=== PATIENT | male | born 1995 | race African-American/Black ===

== ENCOUNTER 2020-08-26 16:09 | Emergency (ER) | payer OTHER, SELFPAY ==
[2020-08-26 16:20] VITALS: BP 126/71; PULSE 70; RESP 16; TEMP 37.2; O2SAT 100
--- NOTE | 2020-08-26 16:21 | ED.BACK ---
HPI - Back Pain/Injury General Chief Complaint: Back Pain/Injury Stated Complaint: lower back pain/right shoulder pain Time Seen by Provider: 08/26/20 16:21 Source: patient and RN notes reviewed History of Present Illness HPI Narrative: Patient is a 25-year-old male who presents the urgent care with complaints of low back and right shoulder pain. Patient denies of any known injury, fall or blunt force trauma. States that his back is been hurting for approximately 10 days and is sharp at times. States that the right shoulder pain has been present for approximately 1 week. Patient states he has been taking ibuprofen whenever it hurts . 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 Denies of any other symptoms. Denies of any urinary symptoms. No other acute complaints. No acute distress noted. Patient aware of the plan of care. Some parts of this dictation were generated by voice recognition software and may contain typographical and/or grammatical inaccuracies. Related Data Allergies Allergy/AdvReac Type Severity Reaction Status Date / Time No Known Allergies Allergy Verified 08/26/20 16:27 Review of Systems Review of Systems: Narrative: CONSTITUTIONAL: Denies fever, chills, or sweats. EYES: Denies visual changes, redness, or discharge. ENT: Denies rhinorrhea, congestion, sore throat, or otalgia. CARDIOVASCULAR: Denies chest pain, palpitations, or edema. RESPIRATORY: Denies cough or dyspnea. GASTROINTESTINAL: Denies abdominal pain, nausea, vomiting, or diarrhea. GENITOURINARY: Denies dysuria or hematuria. SKIN: Denies rash or itching. MUSCULOSKELETAL: Reports of low back pain and right shoulder pain NEUROLOGIC: Denies headache, numbness, or weakness. All other systems reviewed are negative, except as documented in HPI. PMFSH Social History Social History Gender identity (if verbalized by the patient): Male Comments At the time of my signature, I reviewed and agree with the nursing past medical, surgical, social, and family history. There is no relevant family history pertinent to the patient complaint. Exam Narrative: Exam Narrative: GENERAL: This is a well-nourished, well-developed patient, in no apparent distress. HEAD: normocephalic, atraumatic. EYES: PERRL. Sclera clear/white. Vision is grossly intact. EARS: External ears normal NOSE: External nose normal with no obvious nasal discharge, nares without redness, no rhinorrhea. THROAT: Mucous membranes moist NECK: Neck supple SKIN: warm, intact with no suspicious lesions or rash, good texture and turgor. NEURO: awake, alert, and oriented to person, place and time. There were no obvious focal neurologic abnormalities. EXTREMITIES: No clubbing, cyanosis, or edema. No obvious deformity or dislocation to right upper extremity/shoulder. Mild to moderate tenderness with palpation to posterior right shoulder blade. No tenderness to anterior joint space to the right shoulder. Positive strong right radial pulse with capillary refill less than 2 seconds. Range of motion to right upper extremity within normal limits. BACK: Mild diffuse lumbar tenderness with negative bilateral SLE, no crepitus Course Vital Signs Vital signs: Vital Signs Temperature 98.9 F 08/26/20 16:20 Pulse Rate 70 08/26/20 16:20 Respiratory Rate 16 08/26/20 16:20 Blood Pressure 126/71 08/26/20 16:20 Pulse Oximetry 100 08/26/20 16:20 Temperature 98.9 F 08/26/20 16:20 Pulse Rate 70 08/26/20 16:20 Respiratory Rate 16 08/26/20 16:20 Blood Pressure 126/71 08/26/20 16:20 Pulse Oximetry 100 08/26/20 16:20 Reviewed MDM - Back Pain/Injury MDM Narrative Medical decision making narrative: Advised the patient to complete steroid regimen as prescribed. Use Flexeril at bedtime, as needed. Do not drive or operate heavy machinery while taking the Flex
== END 2020-08-26 16:52 | disposition home or self-care (01) ==
PROVIDERS: Emergency Provider Nurse Practitioner Family
DX: M54.5 Low back pain (principal); S46.911A Strain of unspecified muscle, fascia and tendon at shoulder and upper arm level, right arm, initial encounter; X58.XXXA Exposure to other specified factors, initial encounter
CPT/HCPCS: 99213; G0463

== ENCOUNTER 2024-10-01 12:45 | Emergency (ER) | payer OTHER, SELFPAY ==
--- NOTE | ~2024-10-01 | XR_ITS ---
Left Knee Technique: AP, lateral, oblique, and sunrise views were obtained. Clinical History: Pain Findings: No fracture or dislocation is seen. Osseous alignment is anatomic. Joint spaces are preserv ed without degenerative or erosive change. Soft tissues are unremarkable. No joint effusion is seen. Impression: Unremarkable left knee radiographs. Reviewed, dictated and finalized at location . TECH Impression: Unremarkable left knee radiographs.
[2024-10-01 12:49] VITALS: BP 134/81; PULSE 50; RESP 17; TEMP 36.7; O2SAT 100
--- NOTE | 2024-10-01 13:07 | ED_ITS ---
HPI - Extremity Injury (Lower) General Chief Complaint: Extremity Injury, Lower Stated Complaint: left leg injury History of Present Illness HPI Narrative: Patient presents with pain in the lateral size of left knee for the past 2 days. Patient states he accidentally shut it in a van door at work 2 days ago. No bruising no swelling no deformity noted. Related Data Home Medications ?Medication ?Instructions ?Recorded ?Confirmed ?Last Taken ?Type No Home Medications 10/01/24 10/01/24 Unknown History Allergies Allergy/AdvReac Type Severity Reaction Status Date / Time Bleach (Sodium Hypochlorite) Allergy Unknown Unknown Verified 10/01/24 13:12 Review of Systems Review of Systems: CONSTITUTIONAL: Denies fever, chills, or sweats. EYES: Denies visual changes, redness, or discharge. ENT: Denies rhinorrhea, congestion, sore throat, or otalgia. CARDIOVASCULAR: Denies chest pain, palpitations, or edema. RESPIRATORY: Denies cough or dyspnea. GASTROINTESTINAL: Denies abdominal pain, nausea, vomiting, or diarrhea. GENITOURINARY: Denies dysuria or hematuria. SKIN: Denies rash or itching. MUSCULOSKELETAL: Denies back pain, joint pain, or myalgia. NEUROLOGIC: Denies headache, numbness, or weakness. PSYCHIATRIC: Denies anxiety or depression. PMFSH Social History Social History Gender identity (if verbalized by the patient): Male Comments At time of signature, agree with nursing past medical, surgical, social and family history. There is no relevant family history pertinent to the presenting complaint Exam Narrative: GENERAL: Well-appearing, well-nourished, and in no acute distress. HEAD: Normocephalic, atraumatic. EYES: PERRLA and EOMI. ENT: Nares clear, no rhinorrhea or epistaxis. Mucous membranes moist. NECK: Supple. CHEST: Clear to auscultation. No respiratory distress. HEART: Regular rate and rhythm. No murmur heard. Normal peripheral pulses. ABDOMEN: Soft, nontender, nondistended, normal active bowel sounds. EXTREMITIES: Normal range of motion. No edema. SKIN INTACT. NO DEFORMITY. NORMAL ROM, HAS FULL EXTENSION AND FLEXION. COMPARTMENTS SOFT. NEGATIVE ANTERIOR, POSTERIOR DRAWER SIGNS ON TEST. NO CREPITUS. DP PULSE, NORMAL CAPILLARY REFILL MCMURRAYS, PAIN TO RIGHT MEDIAL AND DISTAL KNEE WITH KNEE FLEXION, INTERNAL AND EXTERNAL FOOT ROTATION.NO ERYTHEMA OR INCREASED WARMTH TO CALF. . SKIN: Warm, dry, no rash. NEURO: No focal deficits. Alert and oriented x3. Eris Coma Scale Eye Opening: Spontaneous 4 Eris Coma Scale Motor: Obeys Commands 6 [place] Coma Scale Verbal: Oriented 5 Eris Coma Scale Total 15 Course Course Level of Care: Express Care Visit Vital Signs Vital signs: Vital Signs Temperature 36.7 C 10/01/24 12:49 Pulse Rate 50 L 10/01/24 12:49 Respiratory Rate 17 10/01/24 12:49 Blood Pressure 134/81 10/01/24 12:49 Pulse Oximetry 100 10/01/24 12:49 Oxygen Delivery Room Air 10/01/24 12:49 Temperature 36.7 C 10/01/24 12:49 Pulse Rate 50 L 10/01/24 12:49 Respiratory Rate 17 10/01/24 12:49 Blood Pressure 134/81 10/01/24 12:49 Pulse Oximetry 100 10/01/24 12:49 Oxygen Delivery Room Air 10/01/24 12:49 Please JOSÉ MIGUEL schedule a followup visit with your personal physician for further evaluation and treatment. Including recheck and discussion of your blood pressure. If your symptoms persist, change or worsen significantly before you can contact your personal physician then please, without delay, go to the emergency department for further evaluation MDM - Extremity Injury (Lower) Imaging Data Radiologist's impression: Patient: Marc Chaney : 1995 MR#: [id number] Age: 29 Acct:[id number] Loc: [facility] ADM Date: 10/01/24Attending Dr: Ordering Physician: Antonietta Yoon APRN Date of Service: 10/01/24 Procedure(s): XR knee LT min 4V Accession Number(s): [id number] cc: Antonietta Yoon APRN; PROTOTYPE MACHINIST PHYSICIAN~ Left Knee Technique: AP, lateral, oblique, and sunrise views were obtained. Clinical History: Pain Findings: No fracture or dislocation is seen. Osseous alignment is anatomic. Joint spaces are preserved without degenerative or erosive change. Soft tissues are unremarkable. No joint effusion is seen. Impression: Unremarkable left knee radiographs. Reviewed, dictated and finalized at location . AND DETONATOR Discharge Plan Discharge Clinical Impression: Knee contusion Patient Disposition: Home, Self-Care Condition: Stable Instructions: Knee Sprain (DC) Additional Instructions: Ice to the area 20-30 minutes 4-6 times a day Elevate above heart Elastic wrap or orthopedic splint as directed for comfort for the next 5-7 days Tylenol for lesser pain Ibuprofen regularly for the next 2-3 days for the inflammation Follow-up with PCP if further problems or concerns follow up with orthopedic provider for further evaluation and treatment -If you have any worsening of symptoms or any other concerns please go to the ED immediately. Patient Language: Brazilian Prescriptions: No Action No Home Medications Follow-up/Referrals: Hal Wolff MD [Physician] - PHYSICIAN,PROTOTYPE MACHINIST [Primary Care Provider] - Stand Alone Forms: Work/School Release IP
--- OUTSIDE RECORDS SUMMARY | 2024-10-06 05:49 | XMS_ITS | Referral Summary ---
Author Organization [facility] Address [address] [place] [address] Care Team Providers Care Ticket Speculator Name Role Phone No, Physician Primary Care Provider [phone] Allergies Active Allergy Reactions Criticality Noted Date Comments Bleach (Sodium Hypochlorite) Rash Medium 018 Medications acetaminophen-co deine (TYLENOL with CODEINE #3) 300-30 mg per tablet Take 1 tablet by mouth every 6 (six) hours as needed for pain 8 tablet 04/05/2019 Active neomycin-polymyx in B-dexameth (POLYDEX) 3.5 mg/g-10,000 unit/g-0.1 % ointment Apply to right eye every 4 (four) hours 3.5 g 1 04/05/2019 Active ibuprofen (ADVIL,MOTRIN) 600 mg tablet Take 1 tablet (600 mg total) by mouth every 6 (six) hours as needed for pain Take with food. 30 tablet 02/12/2022 Active Active Problems Problem Noted Date Diagnosed Date Blepharitis of right upper eyelid 04/05/2019 Conjunctival abrasion, right, initial encounter 04/05/2019 Social History Tobacco Use Types Packs/Day Years Used Date Smoking Tobacco: Every Day Smokeless Tobacco: Never Comments:3 cigarettes per da y Alcohol Use Standard Drinks/Week Comments No 0 (1 standard drink = 0.6 oz pur e alcohol) Personal Safety Answer Date Recorded Getting School Help Needed Not on file 01/01 Sex and Gender Information Value Date Recorded Sex Assigned at Not on file Legal Sex Male 1:52 PM CDT Gender Identity Not on file Sexual Orientation Not on file Last Filed Vital Signs Vital Sign Reading Time Taken Comments Blood Pressure 124/67 12/30/2022 8:49 PM CDT Pulse 79 12/30/2022 8:49 PM CDT Temperature 37 ??C (98.6 ??F) 12/30/2022 8:49 PM CDT Respiratory Rate 16 12/30/2022 8:49 PM CDT Oxygen Saturation 97% 12/30/2022 8:49 PM CDT Inhaled Oxygen Concentration - - Weight 56.7 kg (125 lb) 12/30/2022 5:49 PM CDT Height 162.6 cm (5' 4 ) 12/30/2022 5:49 PM CDT Body Mass Index 21.46 12/30/2022 5:49 PM CDT Plan of Treatment Not on file Insurance [facility] [employer]IC Care Teams Ticket Speculator Relationship Specialty Start Date End Date No, Physician PCP - General 07/01/18
--- OUTSIDE RECORDS SUMMARY | 2024-10-06 05:49 | XMS_ITS | Encounter Summary ---
Author Organization [facility] Address [address] [place] [id number] Care Team Providers Care Systems Tester Name Role Phone No, Physician Primary Care Provider [phone] Reason for Visit * Reason Comments Head Injury Encounter Details Date Type Department Care Team (Late st Contact Info) Description 12/30/2022 7:45 PM CDT - 12/30/2022 8:51 PM CDT Emergency [facility] Emergency Department [address] [place] [id number] Injury of head, initial encounter (Primary Dx) Discharge Disposition: Discharge to home or self care Social History Tobacco Use Types Packs/Day Years Used Date Smoking Tobacco: Every Day Smokeless Tobacco: Never Comments:3 cigarettes per da y Alcohol Use Standard Drinks/Week Comments No 0 (1 standard drink = 0.6 oz pur e alcohol) Sex and Gender Information Value Date Recorded Sex Assigned at Not on file Legal Sex Male 1:52 PM CDT Gender Identity Not on file Sexual Orientation Not on file documented as of this encounter Last Filed Vital Signs Vital Sign Reading [...] Mass Index 21.46 12/30/2022 5:49 PM CDT documented in this encounter Discharge Instructions * Discharge Instructions* Ta Gillespie NP - 12/30/2022 8:19 PM CDT Please return to the ED if you experience fever, chills, chest pain, shortness of breath, or difficulty breathing. Please return to the emergency department if you pass out, become lightheaded, dizzy, have abnormalbehavior, or began having vomiting. * Attachments The following attachments cannot be sent through Care Everywhere. * Head Injury (Adult) (German) documented in this encounter Medications at Time of Discharge acetaminophen-cod eine (TYLENOL with CODEINE #3) 300-30 mg per tablet Take 1 tablet by mouth every 6 (six) hours as needed for pain 8 tablet 04/05/2019 ibuprofen (ADVIL,MOTRIN) 600 mg tablet Take 1 tablet (600 mg total) by mouth every 6 (six) hours as needed for pain Take with food. 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 Denies being on a blood thinner, denies loss of consciousness, states he is had some intermittent feelings of a slight headache but other than that has no complaints. Patient was eating and drinking whenI entered the room to perform HPI, ROS, and physical exam and tolerated orals well. Denies additional complaints, denies chest pain, shortness of breath, difficulty breathing, fever, chills. Denies lightheadedness, dizziness, blurred vision. Patient History: Patient Active Problem List Diagnosis Date Noted Blepharitis of right upper eyelid 04/05/2019 Conjunctival abrasion, right, initial encounter 04/05/2019 History reviewed. No pertinent past medical history. History reviewed. No pertinent surgical history. History reviewed. No pertinent family history. Social History Tobacco Use Smoking status: Every Day Smokeless tobacco: Never Tobacco comments: 3 cigarettes per day Substance and Sexual Activity Alcohol use: No Drug use: No Sexual activity: Defer Social History Social History Narrative Not on file Review of Systems Review of Systems Constitutional: Negative for chills and fever. HENT: Negative for ear pain and sore throat. Eyes: Negative for pain and visual disturbance. Respiratory: Negative for cough and shortness of breath. Cardiovascular: Negative for chest pain and palpitations. Gastrointestinal: Negative for abdominal pain and vomiting. Genitourinary: Negative for dysuria and hematuria. Musculoskeletal: Negative for arthralgias and back pain. Skin: Negative for color change and rash. Neurological: Positive for headaches. Negative for seizures and syncope. + intermittent slight headache All other systems reviewed and are negative. Physical Exam ED Triage Vitals [12/30/22 1749] Temp Pulse Resp BP SpO2 37.3 ??C (99.1 ??F) 99 16 142/68 (!) 70 % Temp src Heart Rate Source Patient Position BP Location FiO2 (%) Temporal -- -- -- -- Height Height Method Weight Weight Method 1.626 m (5' 4 ) Stated 56.7 kg (125 lb) Stated Physical Exam Vitals and nursing note reviewed. Constitutional: General: He is not in acute distress. Appearance: Normal appearance. He is well-developed. He is not ill-appearing, toxic-appearing or diaphoretic. HENT: Head: Normocephalic and atraumatic. Right Ear: Tympanic membrane, ear canal and external ear normal. Left Ear: Tympanic membrane, ear canal and external ear normal. Nose: Nose normal. Mouth/Throat: Mouth: Mucous membranes are moist. Eyes: Extraocular Movements: Extraocular movements intact. Conjunctiva/sclera: Conjunctivae normal. Pupils: Pupils are equal, round, and reactive to light. Cardiovascular: Rate and Rhythm: Normal rate and regular rhythm. Pulses: Normal pulses. Heart sounds: No murmur heard. No friction rub. No gallop. Pulmonary: Effort: Pulmonary effort is normal. No respiratory distress. Breath sounds: Normal breath sounds. No stridor. No wheezing, rhonchi or rales. Chest: Chest wall: No tenderness. Abdominal: General: Abdomen is flat. There is no distension. Palpations: Abdomen is soft. There is no mass. Tenderness: There is no abdominal tenderness. There is no right CVA tenderness, left CVA tenderness, guarding or rebound. Hernia: No hernia is present. Musculoskeletal: General: No swelling, tenderness, deformity or signs of injury. Normal range of motion. Cervical back: Normal range of motion and neck supple. Right lower leg: No edema. Left lower leg: No edema. Comments: No TTP to C-spine, T-spine, L-spine. No step-off, no bony deformity. Skin: General: Skin is warm and dry. Capillary Refill: Capillary refill takes less than 2 seconds. Neurological: General: No focal deficit present. Mental Status: He is alert. Psychiatric: Mood and Affect: Mood normal. Behavior: Behavior normal. Thought Content: Thought content normal. Judgment: Judgment normal. [facility] Medical Decision Making Number and Complexity of Problems: 1-uncomplicated, low complexity Differential Diagnosis: Head injury, concussion, fall, subarachnoid hemorrhage, subdural hematoma, epidural hematoma [facility] Data: 27-year-old male patient that is struck his head on warehouse beam just prior to arrival,no loss of consciousness and not on a blood thinner External documents reviewed: None My EKG interpretation: None My CT interpretation: None My X-ray interpretation: None My Ultrasound interpretation: None Decision rules/scores evaluated: [place] head CT rule Discussed with: No consultation required Treatment and Disposition: Stable for discharge home with follow-up for any acute changes ED Course: Uncomplicated Shared decision making: Home dispo Code status: Full Risk OTC drugs. ED Course as of 12/30/222021 Time: 12/30 2006 Comment: Voice recognition software [email or web address] Direct was used to dictate and transcribe this document. Energy Director variances may occur. Despite proofreading, typographical errors may occur. By: Ta Gillespie NP Time: 12/30 2017 Comment: Discussed with patient that since they have a GCS of 15 after the injury, no suspected open or depressed skull fracture, no signs of basilar skull fracture, no multiple episodes of vomiting,is under the age of 65, does not have retrograde amnesia to the event greater than 30 minutes, and no dangerous mechanism that CT is considered unnecessary based on the [place] CT head Injury/Trauma rule. We discussed how based on the [place] validation study it was found to be 100% sensitive for both clinically important injuries and injuries requiring neurosurgery but that in some cases it could be less sensitive. We reviewed warning signs and symptoms that would require immediate return to the ER for further evaluation and treatment focus being on the above listed criteria. Patient verbalizes understanding and agrees to plan. By: Ta Gillespie NP Time: 12/30 2017 Comment: Discussed ED findings and plans for discharge with pt who understands and agrees with plan. Pt has been advised to return to the ED with any new or worsening symptoms. Pt has no further complaints. All questions addressed at this time. By: Ta Gillespie NP Final diagnoses: Injury of head, initial encounter Ta Gillespie NP 12/30/222021 Cosigned by Westley Shoemaker MD at 12/31/2022 1:53 PM CDT Associated attestation - Westley Shoemaker MD - 12/31/2022 1:53 PM CDT Based on the medical record, the care appears appropriate. * Kristi Sahni RN - 12/30/2022 5:48 PM CDT Pt ambulatory to triage for head pain. Pt reports he was at work when he hit the left side of his forehead on a steel beam. Pt denies LOC. Pt A&Ox4 on arrival. documented in this encounter Plan of Treatment Not on file documented as of this encounter Visit Diagnoses Diagnosis Injury of head, initial encounter- Primary documented in this encounter Care Teams Systems Tester Relationship Specialty Start Date End Date No, Physician PCP - General 07/01/18 documented as of this encounter
--- OUTSIDE RECORDS SUMMARY | 2024-10-06 05:49 | XMS_ITS | Encounter Summary ---
Author Organization [facility] Healthcare Address [address] [place] [id number] Care Team Providers Care Hspt Tutor Name Role Phone No, Physician Primary Care Provider [phone] Reason for Visit * Reason Comments Arm Pain Encounter Details Date Type Department Care Team (Late st Contact Info) Description 02/12/2022 8:12 AM CDT - 02/12/2022 9:36 AM CDT Emergency [facility] Emergency Department [address] [place] [address] Iram Ballesteros MD [address] [place] [address] Unspecified soft tissue disorder related to use, overuse and pressure, right upper arm (Primary Dx) Discharge Disposition: Discharge to home [...] Sign Reading Time Taken Comments Blood Pressure 125/77 02/12/2022 6:37 AM CDT Pulse 62 02/12/2022 6:37 AM CDT Temperature 36.7 ??C (98.1 ??F) 02/12/2022 6:37 AM CD T Respiratory Rate 18 02/12/2022 6:37 AM CDT Oxygen Saturation 100% 02/12/2022 6:37 AM CDT Inhaled Oxygen Concentration - - Weight 56.7 kg (125 lb) 02/12/2022 6:37 AM CDT Height - - Body Mass Index 21.46 07/01/2018 1:56 PM CDT documented in this encounter Discharge Diagnoses Diagnosis Unspecified soft tissue disorder related to use, overuse and pressure, right upper arm - UNSPECIFIED SOFT TISSUE DISORDER RELATED TO USE, OVERUSE AND PRESSURE, RIGHT UPPER ARM Nicotine dependence, unspecified, uncomplicated - NICOTINE DEPENDENCE, UNSPECIFIED, UNCOMPLICATED Other custodial (current) drug therapy - OTHER [facility] (CURRENT) DRUG THERAPY documented in this encounter Discharge Instructions * Discharge Instructions* Iram Ballesteros MD - 02/12/2022 9:28 AM CDT Ibuprofen as directed if needed. Follow up with ortho if symptoms are not improved with rest and ibuprofen. Consider obtaining an elbow brace (for tennis elbow . * Attachments The following attachments cannot be sent through Care Everywhere. * Arm Pain (AfterCare(R) Instructions(ER/ED)) (German) documented in this encounter Medications at [...] 1 04/05/2019 documented as of this encounter Ordered Prescriptions Prescription Sig Dispense Quantity Refills Last Filled Start Date End Date ibuprofen (ADVIL,MOTRIN) 600 mg tablet Take 1 tablet (600 mg total) by mouth every 6 (six) hours as needed for pain Take with food. 30 tablet 02/12/2022 documented in this encounter Discharge Disposition Disposition Code Departure Means Destination Discharge to home or self care documented in this encounter ED Notes * Iram Ballesteros MD - 02/12/2022 9:36 AM CDT HPI Chief Complaint Patient presents with ??? Arm Pain Patient complains of pain in his right arm for the past 6 days. He states that the pain is present in his upper arm and then radiates to the fingers of his right hand. He denies a definite injury, although he states that he works for a [employer] and has been using weed whacker for long periods of time. He has no other symptoms, and states he has been feeling well otherwise. Patient History: Patient Active Problem List Diagnosis Date Noted ??? Blepharitis of right upper eyelid 04/05/2019 ??? Conjunctival abrasion, right, initial encounter 04/05/2019 No past medical history on file. No past surgical history on file. No family history on file. Social History Tobacco Use ??? Smoking status: Current Every Day Smoker ??? Smokeless tobacco: Never Used ??? Tobacco comment: 3 cigarettes per day Substance Use Topics ??? Alcohol use: No ??? Drug use: No Social History Social History Narrative ??? Not on file Review of Systems Review of Systems All other systems reviewed and are negative. Physical Exam ED Triage Vitals [02/12/22 0637] Temp Pulse Resp BP SpO2 36.7 ??C (98.1 ??F) 62 18 125/77 100 % Temp src Heart Rate Source Patient Position BP Location FiO2 (%) -- -- -- -- -- Physical Exam Vitals reviewed. Constitutional: Appearance: Normal appearance. HENT: Head: Normocephalic. Mouth/Throat: Mouth: Mucous membranes are moist. Eyes: Conjunctiva/sclera: Conjunctivae normal. Cardiovascular: Rate and Rhythm: Normal rate and regular rhythm. Pulmonary: Effort: Pulmonary effort is normal. Breath sounds: Normal breath sounds. Abdominal: General: Bowel sounds are normal. Palpations: Abdomen is soft. Musculoskeletal: General: No swelling or tenderness. Normal range of motion. Cervical back: Neck supple. No tenderness. Skin: General: Skin is warm and dry. Capillary Refill: Capillary refill takes less than 2 seconds. Neurological: General: No focal deficit present. Mental Status: He is alert and oriented to person, place, and time. Psychiatric: Mood and Affect: Mood normal. Behavior: Behavior normal. MDM Medical Decision Making Differential Diagnosis or Management Options: Patient has no definite clinical findings indicating a serious cause for the right arm pain. This is likely an overuse syndrome. Will treat with anti-inflammatory medication, rest, and follow up with Ortho if no better. Final diagnoses: Unspecified soft tissue disorder related to use, overuse and pressure, right upper arm Iram Ballesteros MD 02/12/226 * Ludmila Naik RN - 02/12/2022 6:36 AM CDT Patient arrives for evaluation of right arm pain since Wednesday. Patient states that he's noticed intermittent swelling and tingling in his finger. Patient denies injury. documented in this encounter Plan of Treatment Not on file documented as of this encounter Visit Diagnoses Diagnosis Unspecified soft tissue disorder related to use, overuse and pressure, right upper arm- Primary documented in this encounter Care Teams Hspt Tutor Relationship Specialty Start Date End Date No, Physician PCP - General 07/01/18 documented as of this encounter
--- OUTSIDE RECORDS SUMMARY | 2024-10-06 05:49 | XMS_ITS | Clinical Summary ---
Author Organization [facility] Address [address] [place] [address] Care Team Providers Care Weigher Alloy Name Role Phone No, Physician Primary Care Provider Allergies Active Allergy Reactions Criticality Noted Date [...] on file Sexual Orientation Not on file Obstetrics History Last Filed Vital Signs Vital Sign Reading [...] 12/30/2022 5:49 PM CDT Plan of Treatment Health Maintenance Due Date Last Done Comments Depression Screening 1996 Hepatitis C Screening 1996 Pneumococcal vaccine <65 (1 of 2 - PCV) 2002 Regular Well Visit/Exam 18-64 2014 DTaP/Tdap/Td Vaccine (7 - Td or Tdap) 05/30/2019 05/30/2009, 05/20/2000, 03/28/1998, Additional history exists Covid-19 Vaccine (2 - 2023- season) 2024 08/07/2021 Influenza Vaccine (#1) 2024 Varicella Vaccines Completed 05/30/2009, 11/07/1997 HPV Vaccines Aged Out No longer eligi ble based on patient's age to complete this topic [place] [address] [employer] [facility] [employer] COMPENSATION GENERIC Care Teams Weigher Alloy Relationship Specialty Start Date End Date No, Physician PCP - General 07/01/18
--- OUTSIDE RECORDS SUMMARY | 2024-10-06 05:50 | XMS_ITS | Encounter Summary ---
Author Organization [facility] Care Team Providers Care Special Education Para Professional Name Role Phone No, Physician Primary Care Provider [phone] Encounter Details Date Type Department Care Team (Latest Contact Info) Description 04/05/2019 Travel Social History Tobacco Use Types Packs/Day Years [...] on file documented as of this encounter Plan of Treatment Not on file documented as of this encounter Visit Diagnoses Not on filedocumented in this encounter Care Teams Special Education Para Professional Relationship Specialty Start Date End Date No, Physician PCP - General 07/01/18 documented as of this encounter
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
--- OUTSIDE RECORDS SUMMARY | 2024-10-06 05:50 | XMS_ITS | Encounter Summary ---
Author Organization [facility] Healthcare Address [address] [place] [id number] Care Team Providers Care [employer] Operator Name Role Phone No, Physician Primary Care Provider [phone] Reason for Visit * Reason Comments Eye Pain Encounter Details Date Type Department Care Team (Late st Contact Info) Description 04/05/2019 6:11 PM CDT - 04/05/2019 7:26 PM CDT Emergency [facility] Emergency Department [address] [place] [id number] Blepharitis of right upper eyelid, unspecified type (Primary Dx); Conjunctival abrasion, right, initial encounter Discharge Disposition: Discharge to home [...] Sign Reading Time Taken Comments Blood Pressure 131/73 04/05/2019 6:37 PM CDT Pulse 62 04/05/2019 6:37 PM CDT Temperature 36.5 ??C (97.7 ??F) 04/05/2019 6:37 PM CD T Respiratory Rate 18 04/05/2019 6:37 PM CDT Oxygen Saturation 100% 04/05/2019 6:37 PM CDT Inhaled Oxygen Concentration - - Weight - - Height - - Body Mass Index - - documented in this encounter Discharge Diagnoses Diagnosis Blepharitis of right upper eyelid - UNSPECIFIED BLEPHARITIS RIGHT UPPER EYELID Injury of conjunctiva and corneal abrasion of right eye without foreign body - INJURY OF CONJUNCTIVA AND CORNEAL ABRASION WITHOUT FOREIGN BODY, RIGHT EYE, INITIAL ENCOUNTER Cigarette nicotine dependence, uncomplicated - NICOTINE DEPENDENCE, CIGARETTES, UNCOMPLICATED Other cause of strike by thrown, projected or falling object, initial encounter - OTHER CAUSE OF STRIKE BY THROWN, PROJECTED OR FALLING OBJECT, INITIAL ENCOUNTER Unspecified place or not applicable - UNSPECIFIED PLACE OR NOT APPLICABLE Activity, other involving exterior property and land maintenance, building and construction - ACTIVITY, OTHER INVOLVING EXTERIOR PROPERTY AND LAND MAINTENANCE, BUILDING AND CONSTRUCTION Other external cause status - OTHER EXTERNAL CAUSE STATUS documented in this encounter Discharge Instructions * Discharge Instructions* Jesus Paz PA - 04/05/2019 7:20 PM CDT List of eye doctors (ophthalmologists) who may see you. This is for your reference only. It does not guarantee an appointment. [facility] [place]: Nicol Guo MD [facility]: Echo Caro MD [facility] [place]: Sumaya Perales MD [facility] [place] [address] [place] [address] * Attachments The following attachments cannot be sent through Care Everywhere. * Abrasion, Corneal (Qatari) * Blepharitis (Qatari) documented in this encounter Medications at Time of Discharge acetaminophen-cod eine (TYLENOL with CODEINE #3) 300-30 mg per tablet Take 1 tablet by mouth every 6 (six) hours as needed for pain 8 tablet 04/05/2019 neomycin-polymyxi n B-dexameth (POLYDEX) 3.5 mg/g-10,000 unit/g-0.1 % ointment Apply to right eye every 4 (four) hours 3.5 g 1 04/05/2019 documented as of this encounter Ordered Prescriptions Prescription Sig Dispense Quantity Refills Last Filled Start Date End Date neomycin-polymyxin B-dexameth (POLYDEX) 3.5 mg/g-10,000 unit/g-0.1 % ointment Apply to right eye every 4 (four) hours 3.5 g 1 04/05/2019 acetaminophen-codei ne (TYLENOL with CODEINE #3) 300-30 mg per tablet Take 1 tablet by mouth every 6 (six) hours as needed for pain 8 tablet 04/05/2019 documented in this encounter Discharge Disposition Disposition Code Departure Means Destination Discharge to home or self care documented in this encounter ED Notes * Jesus Paz PA - 04/05/2019 7:09 PM CDT HPI Chief Complaint Patient presents with ??? Eye Pain 23-year-old male presents with chief complaint of right upper eyelid redness, swelling, and crusting, and right eye conjunctival injection. 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 Denies loss of vision but states that his eye is irritated and aggravated by bright lights. Has a foreign body sensation to the right eye. Claims he had some greenish discharge uponawakening this morning. Patient History Patient Active Problem List Diagnosis Date Noted [...] Review of Systems All other systems reviewed negative. All available allergies, past medical history, past surgical history, social history, and medications reviewed from the medical record, nursing notes, and with patient Physical Exam ED Triage Vitals [04/05/19 1837] Temp Pulse Resp BP SpO2 36.5 ??C (97.7 ??F) 62 18 131/73 100 % Temp src Heart Rate Source Patient Position BP Location FiO2 (%) Oral -- -- -- -- Physical Exam Constitutional: He is oriented to person, place, and time. He appears well- developed and well-nourished. HENT: Head: Normocephalic. Right Ear: External ear normal. Left Ear: External ear normal. Nose: Nose normal. Mouth/Throat: Oropharynx is clear and moist. Eyes: Pupils are equal, round, and reactive to light. EOM are normal. Right Eye Exam: Erythema, swelling, and crusting noted to the right upper eyelid. Instilled tetracaine ophthalmic solution and fluorescein stain. Exam under Wood's lamp revealed conjunctival abrasions at the 12:00 and 3:00 position. Negative for foreign body. Neck: Normal range of motion. Cardiovascular: Normal rate, regular rhythm, normal heart sounds and intact distal pulses. Pulmonary/Chest: Effort normal and breath sounds normal. Musculoskeletal: Normal range of motion. Neurological: He is alert and oriented to person, place, and time. Skin: Skin is warm and dry. Psychiatric: He has a normal mood and affect. His behavior is normal. Judgment and thought content normal. Nursing note and vitals reviewed. MDM MDM Blepharitis of right upper eyelid, unspecified type Conjunctival abrasion, right, initial encounter JUSTIN Aleman 04/[birth year]/191920 Cosigned by Erica Duran MD at 04/06/2019 1:35 AM CDT Associated attestation - Erica Duran MD - 04/06/2019 1:35 AM CDT ED Attestation Based on the medical record the care appears appropriate. * Ceci Benjamin RN - 04/05/2019 6:35 PM CDT Pt presents with R sided eye pain and swelling. Pt said taht it started yesterday with bumps and some swelling. It felt like pins and needles. He is also having some green discharge documented in this encounter Plan of Treatment Not on file documented as of this encounter Visit Diagnoses Diagnosis Blepharitis of right upper eyelid, unspecified type- Primary Conjunctival abrasion, right, initial encounter Blepharitis of right upper eyelid Conjunctival abrasion, right, initial encounter documented in this encounter Administered Medications Inactive Administered Medications - up to 3 most recent administrations Medication Order MAR Action Action Date Dose Rate Site fluorescein 1 mg ophthalmic strip 1 strip 1 strip, right eye, Once, On Wed04/05/19 at 1908, For 1 dose Given 04/05/2019 7:11 PM CDT 1 strip tetracaine (PF) (ALTACAINE) 0.5 % ophthalmic solution 2 drop 2 drop, right eye, Once, On Wed04/05/19 at 1908, For 1 dose, Indications: Administration of Corneal AnesthesiaIndications:Administrat ion of Corneal Anesthesia Given 04/05/2019 7:11 PM CDT 2 drops documented in this encounter Active and Recently Administered Medications Times are shown in CDT. Scheduled Medication Order 04/03/2019 04/04/2019 04/05/2019 fluorescein 1 mg ophthalmic strip 1 strip (COMPLETED) 1 strip, right eye, Once, On Wed04/05/19 at 1908, For 1 dose 1910 (Given - Provid er: Ceci Benjamin RN) tetracaine (PF) (ALTACAINE) 0.5 % ophthalmic solution 2 drop (COMPLETED) 2 drop, right eye, Once, On Wed04/05/19 at 1908, For 1 dose, Indications: Administration of Corneal Anesthesia 1910 (Given - Provid er: Ceci Benjamin RN) documented in this encounter Care Teams [employer] Relationship Specialty Start Date End Date No, Physician PCP - General 07/01/18 documented as of this encounter
== END 2024-10-01 14:09 | disposition home or self-care (01) ==
PROVIDERS: Emergency Provider Nurse Practitioner Family
DX: S80.02XA Contusion of left knee, initial encounter (principal); W22.8XXA Striking against or struck by other objects, initial encounter
CPT/HCPCS: 73564; 99213; G0463